=== PATIENT | female | born 1980 | race Caucasian/White ===

== ENCOUNTER 2019-04-24 14:42 | Outpatient (CLI) | payer BC, SELFPAY ==
--- NOTE | ~2019-04-24 | MR_ITS ---
EXAMINATION: MR elbow LT wo con DATE: 04/24/2019 16:22 INDICATION: Left elbow pain. TECHNIQUE: Magnetic resonance imaging (MRI) of the left elbow was performed without intravenous contr ast. Sequences included coronal, axial, and sagittal PD-weighted FS FSE and coronal, axial, and sagit juan c PD-weighted FSE. COMPARISON: Left elbow radiographs 02/23/2019 FINDINGS: Osseous/other: Bone alignment is normal. No fracture. Bone marrow signal intensity is normal. There is full-thicknes s cartilage loss of the olecranon and posterior humerus at the ulnohumeral joint. There is a skin mar ker posterior to olecranon. Tendons: Brachialis tendon and biceps tendon are normal. There is mild tendinopathy of common flexor tendon. T here is moderate tendinopathy of common extensor tendon. No tear. Ligaments: Radial collateral ligament, lateral ulnar collateral ligament, and ulnar collateral ligament are norm al. Cubital tunnel: Ulnar nerve is normal. Fluid: There is no elbow joint effusion. There is subcutaneous edema overlying the olecranon. IMPRESSION: 1. Severe chondrosis of ulnohumeral joint. 2. Mild tendinopathy of common flexor tendon. Moderate tendinopathy of common extensor tendon. Reviewed, dictated and finalized at location A. ARCHITECT IMPRESSION: 1. Severe chondrosis of ulnohumeral joint. 2. Mild tendinopathy of common flexor tendon. Moderate tendinopathy of common e xtensor tendon.
--- NOTE | ~2019-04-24 | XR_ITS ---
XR knee RT 3V 04/24/2019 15:10 Indication: Right knee pain Procedure: 3 views right knee Comparison: No prior studies for comparison. Findings: Normal anatomic alignment. No significant joint space narrowing. No fracture or traumatic m alalignment. No significant joint effusion. Impression: 1: No significant bone or joint abnormality. Reviewed, dictated and finalized at location B. ON PROGRAMMER Impression: 1: No significant bone or joint abnormality.
== END 2019-04-24 14:43 | disposition home or self-care (01) ==
PROVIDERS: PCP Internal Medicine; Visit Provider Nurse Practitioner
DX: M25.522 Pain in left elbow (principal); M25.561 Pain in right knee; M94.222 Chondromalacia, left elbow; M67.822 Other specified disorders of synovium, left elbow
CPT/HCPCS: 73221; 73562

== ENCOUNTER 2019-08-02 06:40 | Outpatient (CLI) | payer BC, SELFPAY ==
--- NOTE | ~2019-08-02 | MR_ITS ---
EXAMINATION: MR knee RT wo con DATE: 08/02/2019 07:35 INDICATION: Right knee pain. TECHNIQUE: Magnetic resonance imaging (MRI) of the right knee was performed without intravenous contr ast. Sequences included coronal PD-weighted FSE, coronal PD-weighted FS FSE, sagittal T2-weighted FS E, sagittal PD-weighted FS FSE and axial PD weighted fat saturated FSE. COMPARISON: Right knee radiographs dated 04/24/2019 FINDINGS: Medial compartment: Mild medial extrusion of the body of the medial meniscus with full-thickness radial tear near the pos terior root. Increased intrasubstance signal in the body and posterior horn of the medial meniscus wh ich does not contact the articular surface consistent with mucoid degeneration. There is extensive p artial thickness chondral fissuring from the anterior to posterior weightbearing medial femoral condy le with no degenerative subchondral changes. Lateral compartment: Lateral meniscus is normal. Mild partial thickness cartilage loss with smooth chondral surface along the lateral aspect of the posterior weightbearing lateral femoral condyle. Patellofemoral compartment: Partial-thickness chondral ulceration without degenerative subchondral changes along the patellar api saba ridge. Chondral swelling with increased signal but without definitive fissuring at the lateral pa tellar facet. Partial-thickness cartilage loss with generalized smooth appearing chondral surface lena ng portions of the medial trochlea. Ligaments and tendons: Anterior and posterior cruciate ligaments are normal. The medial collateral ligament and fibular brent ateral ligament complex are normal. The extensor mechanism is normal. The visualized medial and later al hamstring tendons as well as the iliotibial band are normal. Fluid: Very small knee joint effusion collecting predominantly in the medial gutter of the suprapatellar edy ch. Multiloculated ganglion cysts cephalad to the posterior aspect of the lateral femoral condyle, at the posterior margin of the posterior cruciate ligament and along the anterior margin of the medial tibial plateau. No loose osteochondral bodies identified. Osseous/other: There is red marrow reexpansion in the metaphyseal regions of the distal femur and proximal tibia. No fracture or pathologic marrow replacing process. IMPRESSION: 1. Full-thickness radial tear near the posterior root of the medial meniscus. 2. Mild tricompartmental osteoarthritis with regions of moderate grade chondromalacia in all 3 compar tments. Reviewed, dictated and finalized at location A. IMPRESSION: 1. Full-thickness radial tear near the posterior root of the medial meniscus. 2. Mild tricompartmental osteoarthritis with regions of moderate grade chondrom alacia in all 3 compartments.
== END 2019-08-02 06:41 | disposition home or self-care (01) ==
PROVIDERS: PCP Internal Medicine; Visit Provider Nurse Practitioner
DX: M25.569 Pain in unspecified knee (principal); S83.241A Other tear of medial meniscus, current injury, right knee, initial encounter; M17.11 Unilateral primary osteoarthritis, right knee; M94.261 Chondromalacia, right knee
CPT/HCPCS: 73721

== ENCOUNTER 2019-10-30 19:40 | Emergency (ER) | payer BC, SELFPAY ==
--- NOTE | ~2019-10-30 | XR_ITS ---
XR knee LT 3V DATE: 10/30/2019 21:02 INDICATION: Twisted knee. [place] a pop. History of ACL surgery. TECHNIQUE: 3 views including crosstable lateral COMPARISON: None FINDINGS: Fixation devices are noted in the distal femur and proximal tibia for history of prior ante rior cruciate ligament repair. There is small suprapatellar knee joint effusion. There is mild periarticular spurring of the patella. There is mild periarticular spurring at the late ral compartment, mild loss of height of medial compartment joint space. No fracture or dislocation, periosteal reaction or bone destruction. No radiopaque intra-articular lo ose body or chondrocalcinosis. IMPRESSION: Status post anterior cruciate ligament repair Small joint effusion; no evidence of fracture Tricompartment osteoarthritis Reviewed, dictated and finalized at location A.
[2019-10-30 19:48] VITALS: BP 143/87; PULSE 89; RESP 18; TEMP 36.7; O2SAT 98
--- NOTE | 2019-10-30 19:53 | ED.LOWEXIN ---
HPI - Extremity Injury (Lower) General Chief Complaint: Extremity Injury, Lower Stated Complaint: Injured left knee Time Seen by Provider: 10/30/19 19:43 Source: patient and family Mode of arrival: ambulatory Limitations: no limitations History of Present Illness HPI Narrative: 39 years old white female, morbidly obese came to the emergency room with twisting and pain behind left knee prior to arrival to the emergency room. Patient denies. History of left knee surgery years ago. Related Data Home Medications Medication Instructions Recorded Confirmed ibuprofen 200 mg capsule 200 mg PO Q6H PRN 02/23/19 08/04/19 acetaminophen PO 05/23/19 08/04/19 acetaminophen 650 mg 650 mg PO Q12H 08/29/19 tablet,extended release Allergies Allergy/AdvReac Type Severity Reaction Status Date / Time No Known Allergies Allergy Verified 10/30/19 20:21 Review of Systems Review of Systems: Narrative: CONSTITUTIONAL: Denies fever, chills, or sweats. EYES: Denies visual changes, redness, or discharge. ENT: Denies rhinorrhea, congestion, sore throat, or otalgia. CARDIOVASCULAR: Denies chest pain, palpitations, or edema. RESPIRATORY: Denies cough or dyspnea. GASTROINTESTINAL: Denies abdominal pain, nausea, vomiting, or diarrhea. GENITOURINARY: Denies dysuria or hematuria. SKIN: Denies rash or itching. MUSCULOSKELETAL: Denies back pain, joint pain, or myalgia. NEUROLOGIC: Denies headache, numbness, or weakness. PSYCHIATRIC: Denies anxiety or depression. [facility] Past Medical History Medical History Arthritis Arthritis of elbow, degenerative Arthritis of knee, right Asthma Chondromalacia of right patellofemoral joint Medial epicondyle apophysitis of left elbow due to overuse Medial meniscus tear Obesity Pancreatitis, acute Surgical History Surgical History H/O dilation and curettage 2009 S/P ACL surgery Left 1997 Family History Family History Father Hypertension CAD (coronary artery disease) Type 2 diabetes mellitus Mother Coronary artery stenosis Renal stones Sibling Hypertension Other Arthritis Diabetes mellitus Heart disease Malignant neoplasm Social History Social History Smoking status: Former smoker Tobacco type: cigarettes Smoking end date: 02/23/16 Alcohol intake: current Gender identity (if verbalized by the patient): Female Exam Narrative: Exam Narrative: General appearance: Well-developed, well-nourished Skin: Normal color Head: Normocephalic, nontraumatic Eyes: Clear conjunctiva ENT: Oropharynx normal, ears normal, nose normal Neck: Supple, nontender Chest and respiratory: Airway patent, no respiratory distress, no accessory muscle use Heart: Regular rate/rhythm Abdomen: Soft, nontender, no organomegaly, quiet bowel sounds Vascular: Normal peripheral pulses, normal capillary refill. Musculoskeletal: Left knee showed no deformity, no swelling, diffuse tenderness anterior lateral, slight limited range of motion Neurologic: Alert and oriented ?3, PHOTOGRAPH FINISHER is normal as tested, no gross motor deficit Course Course Emergency Course: Stable Vital Signs Vital signs: Vital Signs Temperature 36.7 C 10/30/19 19:48 Pulse Rate 89 10/30/19 19:48 Respiratory Rate 18 10/30/19 19:48 Blood Pressure 143/87 H 10/30/19 19:48 Pulse Oximetry 98 10/30/19 19:48 Temperature 36.7 C 10/30/19 19:48 Pulse Rate 89 10/30/19 19:48 Respiratory Rate 18 10/30/19 19:48 Blood Pressure 143/87 H
[2019-10-30] MEDS: IBUPROFEN 600 MG TABLET PO (19:59)
[2019-10-30 21:53] VITALS: PULSE 79; RESP 18; O2SAT 99
== END 2019-10-30 21:54 | disposition home or self-care (01) ==
PROVIDERS: Emergency Provider Emergency Medicine; PCP Internal Medicine
DX: S83.92XA Sprain of unspecified site of left knee, initial encounter (principal); M19.90 Unspecified osteoarthritis, unspecified site; J45.909 Unspecified asthma, uncomplicated; Z87.891 Personal history of nicotine dependence; E66.01 Morbid (severe) obesity due to excess calories; X58.XXXA Exposure to other specified factors, initial encounter
CPT/HCPCS: 73562; 99283; A9270

== ENCOUNTER 2019-11-08 17:23 | Outpatient (CLI) | payer BC, SELFPAY ==
--- NOTE | ~2019-11-08 | MR_ITS ---
EXAMINATION: MR knee LT wo con DATE: 11/08/2019 18:30 INDICATION: Left knee pain. TECHNIQUE: Magnetic resonance imaging (MRI) of the left knee was performed without intravenous contra st. Sequences included axial PD-weighted FS FSE, coronal PD-weighted FSE and PD-weighted FS FSE, sagi ttal PD-weighted FSE, and sagittal T2-weighted FS FSE. COMPARISON: Left knee radiographs 10/30/2019 FINDINGS: Medial compartment: There is a radial tear of posterior root of medial meniscus. There is shallow partial-thickness carti james loss of tibial condyle and femoral condyle. Marginal osteophytes are noted. Lateral compartment: There is a vertical tear of posterior horn of lateral meniscus. There is shallow partial-thickness ca rtilage loss of tibial condyle, worst at the posterior articular surface. There is cartilage surface irregularity of femoral condyle. Marginal osteophytes are noted. Patellofemoral compartment: There is deep partial thickness cartilage loss of patellar medial facet, median ridge, and medial asp ect of lateral facet. There is cartilage surface irregularity of trochlea. Marginal osteophytes are n oted. Ligaments and tendons: There are changes of anterior cruciate ligament reconstruction, which is intact. Posterior cruciate l igament demonstrates increased signal and non-smooth margins, consistent with sprain. Medial collater al ligament is intact. There are changes of prior sprain of fibular collateral ligament characterized by thickening and increased signal intensity proximally. There is mild patellar tendinopathy. Fluid: There is a small knee joint effusion. There is trace fluid in a Freeman's cyst. There are partial tears of the origins of medial and lateral heads of gastrocnemius with associated ganglion cysts. IMPRESSION: 1. Moderate chondrosis of patellofemoral compartment and mild chondrosis of medial and lateral compar tments. 2. Intact anterior cruciate ligament reconstruction. 3. Tears of medial and lateral menisci. 4. Posterior cruciate ligament sprain. 5. Small knee joint effusion. Reviewed, dictated and finalized at location A. IMPRESSION: 1. Moderate chondrosis of patellofemoral compartment and mild chondrosis of med ial and lateral compartments. 2. Intact anterior cruciate ligament reconstruction. 3. Tears of medial and lateral menisci. 4. Posterior cruciate ligament sprain. 5. Small knee joint effusion.
== END 2019-11-08 17:24 | disposition home or self-care (01) ==
PROVIDERS: PCP Internal Medicine; Visit Provider Nurse Practitioner
DX: M25.462 Effusion, left knee (principal); S83.242A Other tear of medial meniscus, current injury, left knee, initial encounter; S83.282A Other tear of lateral meniscus, current injury, left knee, initial encounter; X58.XXXA Exposure to other specified factors, initial encounter; S83.522A Sprain of posterior cruciate ligament of left knee, initial encounter
CPT/HCPCS: 73721

== ENCOUNTER 2020-01-29 02:01 | Outpatient (CLI) | payer BC, SELFPAY ==
[2020-01-29 18:53] LABS: SARS-CoV-2 RNA PCR Negative
== END 2020-01-29 02:02 | disposition home or self-care (01) ==
LOC: ANHCOVIDDT 02:01
PROVIDERS: PCP Internal Medicine; Visit Provider Orthopaedic Surgery
DX: Z01.812 Encounter for preprocedural laboratory examination (principal); Z20.828 Contact with and (suspected) exposure to other viral communicable diseases
CPT/HCPCS: 87635; C9803; U0003

== ENCOUNTER 2020-02-01 01:03 | Day surgery (SDC) | payer BC, SELFPAY ==
[2020-01-26 16:21] VITALS: BMI 43.2
--- NOTE | 2020-02-01 06:46 | WPDHPUPDATE1 ---
History and Physical Update Update Date/Time: 02/01/20 06:46 History and Physical has been reviewed, including an updated exam of the patient. There are NO changes in the patient's condition. Covid test negative. Risks, benefits, and alternatives have been discussed and questions answered. Patient agrees to proceed with procedure.
--- NOTE | 2020-02-01 08:13 | WPDANESEPP ---
Anes - Eval Pre Procedure Procedure: Operation Date: 02/01/20 10:30 Proposed Procedures p Left Knee Arthroscopy, Debride Meniscus, Synovectomy, Chondroplasty, Proceed As Indicated - Dakota Elliott MD Date/Time: 02/01/20 08:13 Pre Op Diagnosis: Left Knee Pain, Left meniscus tear, Chondromalacia Patient Data Age: 39 Gender: F Height: 1.65 m Weight: 117.98 kg Allergies Allergy/AdvReac Type Severity Reaction Status Date / Time No Known Allergies Allergy Verified 01/26/20 15:30 Home Medications Medication Instructions Recorded Confirmed Type acetaminophen 650 mg 650 mg PO Q12H 08/29/19 01/26/20 History tablet,extended release tramadol 50 mg PO Q4H PRN #20 tablet 10/30/19 01/26/20 Rx celecoxib 200 mg capsule 200 mg PO DAILY #30 cap 11/29/19 01/26/20 Rx Patient hx anesthesia problems: none Family hx anesthesia problems: none PMFSH Past Medical History Medical History Acute medial meniscus tear of left knee Arthritis Arthritis of elbow, degenerative Arthritis of knee, right Asthma Chondromalacia of right patellofemoral joint Chondromalacia patellae, left knee Lateral meniscus tear, current Medial epicondyle apophysitis of left elbow due to overuse Medial meniscus tear Obesity Obesity Pancreatitis, acute Surgical History Surgical History H/O dilation and curettage 2009 H/O reconstruction of anterior cruciate ligament tear S/P ACL surgery Left 1997 Family History Family History Father Hypertension CAD (coronary artery disease) Type 2 diabetes mellitus Mother Coronary artery stenosis Renal stones Sibling Hypertension Other Arthritis Diabetes mellitus Heart disease Malignant neoplasm Social History Social History Smoking packs per day: 0.5 Smoking cigarettes per day: 10.0 Years smoked: 15 Smoking pack-years: 7.50 Smoking status: Former smoker Tobacco type: cigarettes Smoking end date: 02/22/15 Alcohol intake: current Living arrangements: with family Gender identity (if verbalized by the patient): Female Spiritual care concerns: No Exam Day of Procedure 02/01/20 08:13
[2020-02-01 08:30] VITALS: BP 145/94; PULSE 87; RESP 20; TEMP 36.8; O2SAT 99
[2020-02-01] MEDS: ACETAMINOPHEN 500 MG TABLET 1000 MG PO (09:02)
[2020-02-01] MEDS: KETOROLAC 15 MG/ML VIAL (*BKC) IV PUSH (09:03)
[2020-02-01] MEDS: LACTATED RINGERS 1,000 ML 30 ML IV CONT (09:03)
--- NOTE | 2020-02-01 11:04 | WPDANESEPPF ---
Anes - Initial Pre Proc Eval Procedure: Operation Date: 02/01/20 10:30 Proposed Procedures p Left Knee Arthroscopy, Debride Meniscus, Synovectomy, Chondroplasty, Proceed As Indicated - Dakota Elliott MD Date/Time: 02/01/20 11:04 Surgeon: Dakota Elliott MD Pre Op Diagnosis: Left Knee Pain, Left meniscus tear, Chondromalacia Patient Data Age: 39 Gender: F Height: 5 ft 5 in Weight: 118.6 kg Last Vital Signs Temp 98.3 F 02/01/20 08:30 Pulse 87 02/01/20 08:30 Resp 20 02/01/20 08:30 BP 145/94 H 02/01/20 08:30 Pulse Ox 99 02/01/20 08:30 Allergies Allergy/AdvReac Type Severity Reaction Status Date / Time No Known Allergies Allergy Verified 02/01/20 09:53 Home Medications Medication Instructions Recorded Confirmed Type acetaminophen 650 mg 650 mg PO Q12H 08/29/19 02/01/20 History tablet,extended release tramadol 50 mg PO Q4H PRN #20 tablet 10/30/19 02/01/20 Rx celecoxib 200 mg capsule 200 mg PO DAILY #30 cap 11/29/19 02/01/20 Rx Patient hx anesthesia problems: none Family hx anesthesia problems: none PMFSH Past Medical History Medical History Acute medial meniscus tear of left knee Arthritis Arthritis of elbow, degenerative Arthritis of knee, right Asthma Chondromalacia of right patellofemoral joint Chondromalacia patellae, left knee Lateral meniscus tear, current Medial epicondyle apophysitis of left elbow due to overuse Medial meniscus tear Obesity Obesity Pancreatitis, acute Surgical History Surgical History H/O dilation and curettage 2009 H/O reconstruction of anterior cruciate ligament tear S/P ACL surgery Left 1997 Family History Family History Father Hypertension CAD (coronary artery disease) Type 2 diabetes mellitus Mother Coronary artery stenosis Renal stones Sibling Hypertension Other Arthritis Diabetes mellitus Heart disease Malignant neoplasm Social History Social History Smoking packs per day: 0.5 Smoking cigarettes per day: 10.0 Years smoked: 15 Smoking pack-years: 7.50 Smoking status: Former smoker Tobacco type: cigarettes Smoking end date: 02/22/15 Alcohol intake: current Living arrangements: with family Gender identity (if verbalized by the patient): Female Spiritual care concerns: No Anes - Eval Final PreProcedure Day of Procedure 02/01/20 11:04 Patient weight: morbidly obese Heart: regular rate and rhythm Lungs: clear to auscultation Airway: Mallampati scale class III Neurological: alert and oriented Last oral intake: >/= 8 hours ASA classification: III Emergent: no Anesthetic plan: proceed Anesthesia type and monitoring: general LMA and standard monitoring Informed Consent: The patient's anesthetic plan and its attendant risks and benefits were discussed with the patient/family/POA. Questions were solicited and answers provided to the satisfaction of the patient/family/POA.
[2020-02-01] MEDS: ceFAZolin 2 GM/D5W 50 ML 2 GM/50 ML BAG IVPB (11:36)
[2020-02-01 12:49] VITALS: BP 136/89; PULSE 85; RESP 8; TEMP 36.8; O2SAT 95
--- NOTE | 2020-02-01 12:58 | P.OP_ITS ---
Procedure Note - Detailed Date of procedure: 02/01/20 Pre-op diagnosis: Left Knee Pain, Left meniscus tear, Chondromalacia Medial and lateral meniscus tear, moderate to severe synovitis anterior medial and lateral compartments with medial and lateral plica, chondromalacia patellofemoral, lateral and medial femoral condyle Post-op diagnosis: same Procedure performed: Left knee arthroscopy with partial medial and lateral meniscectomy, synovectomy, chondroplasty Description of procedure: Indications: 39-year-old woman with left knee pain. Patient failed non operative treatment with therapy, home exercises, activity modifications and anti-inflammatories. Pain on a daily basis with weight- bearing activity. Presents now for operative treatment. Informed consent given by patient. Operative extremity marked in preoperative holding area. Patient received intravenous antibiotics. Patient brought to operating room and underwent general anesthetic by anesthesia team. Positioned supine on operating room table. Left leg placed into a posterior thigh leg moore. Foot of the table dropped to 90? and right leg padded out of the field. Time-out performed confirming patient, site of surgery and plan. Left knee prepped and draped in usual sterile surgical fashion using ChloraPrep skin solution. Standard arthroscopic portals made by using a 11 blade knife for the anterior lateral portal 1st. Capsule penetrated bluntly. Camera and inflow started. The below operative findings noted. Intra-articular visualization used to position the anterior medial portal using 22 gauge spinal needle. A 11 blade knife used for the skin and blunt penetration of the capsule. 4.7 millimeter arthroscopic shaver introduced and partial medial meniscectomy of the loose and torn portion performed. Shaver then positioned in the lateral compartment and partial lateral meniscectomy performed. Edge of meniscus completed with arthroscopic Wand. Arthroscopic Wand used to perform chondroplasty of the patellofemoral articul ation and the medial and lateral femoral condyle. Shaver reintroduced and a synovectomy performed of the anterior fat pad and extensive synovium as well as medial and lateral plica. Bleeding points c oagulated with Wand. Knee inspected, no loose pieces noted. 1 liter of irrigant infused and suction out. Arthroscopic cannulas removed. Skin closed with 4 nylon interrupted suture. Local anesthetic with 0.25% Marcaine. Sterile dressing applied. Patient awoken from anesthesia, extubated and taken to recovery room in stable condition. All sponge needle and instrument counts correct at the end of the case. Anesthesia: GLMA Surgeon: Dakota Elliott MD Estimated blood loss (mL): 5 Tourniquet time (min): 0 Drains: No Packing: No Pathology: none sent Complications: None Condition: stable Disposition: PACU Findings: Left knee previous anterior cruciate ligament reconstruction intact, PCL intact. Complex degenerative tear posterior horn lateral meniscus with surrounding synovitis, complex degenerative tear posterior horn medial meniscus, extensive synovitis anterior compartment anterior fat pad medial and lateral compartments peripatellar with thickened synovium and plica medial and lateral. Grade 4 chondromalacia medial femoral condyle, grade 2 chondromalacia lateral femoral condyle, a grade 3 patella with grade 3 femoral trochlea changes
[2020-02-01 13:00] VITALS: BP 136/89; PULSE 85; RESP 20; TEMP 36.8; O2SAT 95
[2020-02-01 13:15] VITALS: BP 145/81; PULSE 97; RESP 20; O2SAT 99
[2020-02-01 13:35] VITALS: BP 128/93; PULSE 78; RESP 16
[2020-02-01 14:01] VITALS: BP 138/93; PULSE 73; RESP 16
[2020-02-01] MEDS: ONDANSETRON INJ 4 MG/2 ML VIAL IV PUSH (14:01)
== END 2020-02-01 14:45 | disposition home or self-care (01) ==
PROVIDERS: PCP Internal Medicine; Visit Provider Orthopaedic Surgery
PROC: (CPT 29870; principal; 2020-02-01 10:30)
DX: S83.242A Other tear of medial meniscus, current injury, left knee, initial encounter (principal); S83.282A Other tear of lateral meniscus, current injury, left knee, initial encounter; X50.0XXA Overexertion from strenuous movement or load, initial encounter; M65.862 Other synovitis and tenosynovitis, left lower leg; M94.262 Chondromalacia, left knee; M67.52 Plica syndrome, left knee; E66.01 Morbid (severe) obesity due to excess calories; Z68.41 Body mass index [BMI] 40.0-44.9, adult; Z87.891 Personal history of nicotine dependence
CPT/HCPCS: 29880; A9270; J0690; J1100; J1885; J2405; J2704; J3010; J7120

== ENCOUNTER 2020-03-25 00:34 | Outpatient (CLI) | payer BC, SELFPAY ==
[2020-03-25 17:34] LABS: SARS-CoV-2 RNA PCR Negative
== END 2020-03-25 00:35 | disposition home or self-care (01) ==
LOC: ANHCOVIDDT 00:34
PROVIDERS: PCP Internal Medicine; Visit Provider Orthopaedic Surgery
DX: Z01.812 Encounter for preprocedural laboratory examination (principal); Z20.822 Contact with and (suspected) exposure to COVID-19
CPT/HCPCS: C9803; U0003; U0005

== ENCOUNTER 2020-03-28 01:26 | Day surgery (SDC) | payer BC, SELFPAY ==
[2020-03-22 15:04] VITALS: BMI 43.2
[2020-03-28] VITALS (9 sets, daily range): BP systolic 109–140; BP diastolic 60–100; PULSE 71–98; RESP 11–20; TEMP 36.2–36.5; O2SAT 95–100
--- NOTE | 2020-03-28 07:22 | WPDHPUPDATE1 ---
History and Physical Update Update Date/Time: 03/28/20 07:22 History and Physical has been reviewed, including an updated exam of the patient. There are NO changes in the patient's condition. Covid test negative. Risks, benefits, and alternatives have been discussed and questions answered. Patient agrees to proceed with procedure.
--- NOTE | 2020-03-28 08:02 | WPDANESEPPF ---
Anes - Initial Pre Proc Eval Procedure: Operation Date: 03/28/20 10:30 Proposed Procedures p Right Knee Arthroscopy Debride Meniscus, Synovectomy, Chondroplasty, Proceed As Indicated - Dakota Elliott MD Date/Time: 03/28/20 08:02 Surgeon: Dakota Elliott MD Pre Op Diagnosis: Right knee Pain, Right Chondromalacia Patient Data Age: 39 Gender: F Height: 1.65 m Weight: 118 kg Allergies Allergy/AdvReac Type Severity Reaction Status Date / Time No Known Allergies Allergy Verified 03/28/20 09:06 Home Medications Medication Instructions Recorded Confirmed Type acetaminophen 650 mg 650 mg PO Q12H PRN 08/29/19 03/28/20 History tablet,extended release hydrocodone-acetaminophen [[place]] 1 tablet PO Q6H PRN #30 tablet 02/01/20 03/22/20 Rx ondansetron HCl [Zofran] 4 mg PO Q8H PRN #10 tablet 02/01/20 03/22/20 Rx celecoxib 200 mg capsule 200 mg PO DAILY #30 cap 03/19/20 03/28/20 Rx Patient hx anesthesia problems: none Family hx anesthesia problems: none PMFSH Past Medical History Medical History (Updated 03/28/20 @ 08:02 by Parker Sims MD) Acute medial meniscus tear of left knee Arthritis Arthritis of elbow, degenerative Arthritis of knee, right Asthma Chondromalacia of right patellofemoral joint Chondromalacia patellae, left knee Lateral meniscus tear, current Medial epicondyle apophysitis of left elbow due to overuse Medial meniscus tear Morbid obesity with BMI of 40.0-44.9, adult Obesity Obesity Pancreatitis, acute Surgical History Surgical History H/O dilation and curettage 2009 H/O reconstruction of anterior cruciate ligament tear S/P ACL surgery Left 1997 Family History Family History Father Hypertension CAD (coronary artery disease) Type 2 diabetes mellitus Mother Coronary artery stenosis Renal stones Sibling Hypertension Other Arthritis Diabetes mellitus Heart disease Malignant neoplasm Social History Social History Smoking packs per day: 0.5 Smoking cigarettes per day: 10.0 Years smoked: 15 Smoking pack-years: 7.50 Tobacco type: cigarettes Second hand tobacco smoke exposure: No Smoking end date: 02/22/15 Additional smoking assessment comments: QUIT 2016 Alcohol intake: current Substance use: never Substance use type: does not use Living arrangements: with family Gender identity (if verbalized by the patient): Female Spiritual care concerns: No Anes - Eval Final PreProcedure Day of Procedure 03/28/20 08:02 Patient weight: obese Heart: regular rate and rhythm Lungs: clear to auscultation and normal air movement Airway: Mallampati scale class II Neurological: alert and oriented Last oral intake: >/= 8 hours ASA classification: III Emergent: no Anesthetic plan: proceed Anesthesia type and monitoring: general LMA Informed Consent: The patient's anesthetic plan and its attendant risks and benefits were discussed with the patient/family/POA. Questions were solicited and answers provided to the satisfaction of the patient/family/POA.
[2020-03-28] MEDS: LACTATED RINGERS 1,000 ML 30 ML IV CONT ×2 (09:17→11:58)
[2020-03-28] MEDS: KETOROLAC 15 MG/ML VIAL (*BKC) IV PUSH (09:20)
[2020-03-28] MEDS: ACETAMINOPHEN 500 MG TABLET 1000 MG PO (09:20)
--- NOTE | 2020-03-28 09:30 | SUR.PREOP ---
patient states she has received crutch training and incentive spirometer teaching with last knee operation. Reiterated teaching, patient confirms understanding.
[2020-03-28] MEDS: ceFAZolin 2 GM/D5W 50 ML 2 GM/50 ML BAG IVPB (10:48)
[2020-03-28] MEDS: BUPIVACAINE/EPINEPHRINE 0.25% 50 ML VIAL INFILTRATE (11:23)
--- NOTE | 2020-03-28 12:11 | P.OP_ITS ---
Procedure Note - Detailed Date of procedure: 03/28/20 Pre-op diagnosis: Right knee Pain, Right Chondromalacia Post-op diagnosis: same Procedure performed: Right knee arthroscopy, partial medial meniscectomy, synovectomy, chondroplasty Description of procedure: Patient is a 39-year-old woman with right knee pain. MRI demonstrates medial meniscus tear, chondromalacia and synovitis with effusion. Patient has failed conservative treatment with cortisone injection, physical therapy, home exercises and activity modification. She presents for operative treatment. What was done: Informed consent given by patient. Operative extremity marked in preoperative holding area. Patient received intravenous antibiotics. Patient brought to operating room and underwent general anesthetic by anesthesia team. Positioned supine on operating room table. Right leg placed into a posterior thigh leg moore. Foot of the table dropped to 90? and left leg padded out of the field. Time-out performed confirming patient, site of surgery and plan. Rig ht knee prepped and draped in usual sterile surgical fashion using ChloraPrep skin solution. Standard arthroscopic portals made by using a 11 blade knife for the anterior lateral portal 1st. Capsule penetrated bluntly. Camera and inflow started. The below operative findings noted. Intra-articular visualization used to position the anterior medial portal using 22 gauge spinal needle. A 11 blade knife used for the skin and blunt penetration of the capsule. 4.7 millimeter arthroscopic shaver introduced and partial medial meniscectomy of the loose and torn portion performed. Edge of meniscus completed with arthroscopic Wand. Arthroscopic Wand used to perform chondroplasty of the patellofemoral articulation and the medial femoral condyle. Shaver reintroduced and a synovectomy performed of the anterior fat pad and extensive synovium as well as medial and lateral plica, medial and lateral joint and gutters. Bleeding points coagulated with Wand. Knee inspected, no loose pieces noted. 1 liter of irrigant infused and suction out. Arthroscopic cannulas removed. Skin closed with 4 nylon interrupted suture. Local anesthetic with 0.25% Marcaine. Sterile dressing applied. Patient awoken from anesthesia, extubated and taken to recovery room in stable condition. All sponge needle and instrument counts correct at the end of the case. Implants: None Anesthesia: GLMA Surgeon: Dakota Elliott MD Estimated blood loss (mL): 5 Tourniquet time (min): 0 Drains: No Packing: No Pathology: none sent Complications: None Condition: stable Disposition: PACU Findings: Right knee with grade 4 chondromalacia of the medial femoral condyle grade 3 tibial plateau. Complex degenerative type tear of the body and posterior horn medial meniscus with displacement into the joint. ACL and PCL intact. Lateral compartment intact. Grade 3 chondromalacia patella articular surface. Extensive synovitis anterior with large medial plica and extensive synovitis medial and lateral joint capsule.
[2020-03-28] MEDS: ONDANSETRON INJ 4 MG/2 ML VIAL IV PUSH (12:29)
[2020-03-28] MEDS: SCOPOLAMINE 1.5 MG PATCH TRANSDERM (12:38)
[2020-03-28] MEDS: HALOPERIDOL LACTATE 5 MG/ML VIAL 1 MG IV PUSH (12:40)
== END 2020-03-28 13:40 | disposition home or self-care (01) ==
PROVIDERS: PCP Internal Medicine; Visit Provider Orthopaedic Surgery
PROC: (CPT 29870; principal; 2020-03-28 10:30)
DX: S83.241A Other tear of medial meniscus, current injury, right knee, initial encounter (principal); M94.261 Chondromalacia, right knee; M65.861 Other synovitis and tenosynovitis, right lower leg; X58.XXXA Exposure to other specified factors, initial encounter; E66.01 Morbid (severe) obesity due to excess calories; Z68.41 Body mass index [BMI] 40.0-44.9, adult; Z87.891 Personal history of nicotine dependence
CPT/HCPCS: 29881; 29876; A9270; J0690; J1100; J1630; J1885; J2250; J2405; J2704; J3010; J7120

== ENCOUNTER 2020-07-11 08:12 | Emergency (ER) | payer BC, SELFPAY ==
[2020-07-11 08:23] VITALS: BP 137/97; PULSE 80; RESP 18; TEMP 36.6; O2SAT 98
--- NOTE | 2020-07-11 08:24 | ED.EAR ---
HPI - Ear Problem General Chief complaint: Ear Stated complaint: Sore Throat,Ear Pain Time Seen by Provider: 07/11/20 08:24 Source: patient Mode of arrival: ambulatory Limitations: no limitations History of Present Illness HPI Narrative: Mary Kate Arellano is a 40 yo female with a PMH of pancreatitis, arthritis, recurrent knee issues, [facility] complaints of ear pain today. Started with a sore throat yesterday then woke up this morning with ear pain. Has taken Tylenol. Related Data Allergies Allergy/AdvReac Type Severity Reaction Status Date / Time No Known Allergies Allergy Verified 07/11/20 08:19 Review of Systems Review of Systems: Narrative: CONSTITUTIONAL: Denies fever, chills, sweats. EYES: Denies visual changes, redness, discharge. ENT: Denies rhinorrhea, congestion, has sore throat, R otalgia. CARDIOVASCULAR: Denies chest pain, palpitations, edema. RESPIRATORY: Denies dyspnea, wheezing, cough GASTROINTESTINAL: Denies abdominal pain, nausea, vomiting, diarrhea. GENITOURINARY: Denies dysuria, hematuria, abnormal discharge SKIN: Denies rash or itching. NEUROLOGIC: Denies numbness, or focal weakness. PSYCHIATRIC: Denies anxiety or depression. ON LICENSE OF [facility] Past Medical History Medical History Acute medial meniscus tear of left knee Arthritis Arthritis of elbow, degenerative Arthritis of knee, right Asthma Chondromalacia of right patellofemoral joint Chondromalacia patellae, left knee Lateral meniscus tear, current Medial epicondyle apophysitis of left elbow due to overuse Medial meniscus tear Morbid obesity with BMI of 40.0-44.9, adult Obesity Obesity Pancreatitis, acute Surgical History Surgical History H/O dilation and curettage 2009 H/O reconstruction of anterior cruciate ligament tear S/P ACL surgery Left 1997 Family History Family History Father Hypertension CAD (coronary artery disease) Type 2 diabetes mellitus Mother Coronary artery stenosis Renal stones Sibling Hypertension Other Arthritis Diabetes mellitus Heart disease Malignant neoplasm Social History Social History Smoking packs per day: 0.5 Smoking cigarettes per day: 10.0 Years smoked: 15 Smoking pack-years: 7.50 Tobacco type: cigarettes Second hand tobacco smoke exposure: No Smoking end date: 02/22/15 Additional smoking assessment comments: QUIT 2016 Alcohol intake: current Substance use: never Substance use type: does not use Gender identity (if verbalized by the patient): Female Spiritual care concerns: No Comments At time of signature, I agree with nursing past medical, surgical, social and family history. There is no relevant family history pertinent to the presenting complaint. Blood pressure elevated at today's visit may be due to pain but will follow up with primary care physician Exam Narrative: Exam Narrative: GENERAL: This is a well-nourished, well-developed patient, in mild distress. HEAD: normocephalic, atraumatic. EYES: PERRL. Sclera clear/white. Vision is grossly intact. EARS: External ears normal, auditory canal clear on L erythema of right canal and without drainage, bulging right TM. Hearing grossly intact. Swollen red R lobe from small pimple NOSE: External nose normal without nasal discharge, nares without redness, no rhinorrhea. THROAT: Mucous membranes moist, posterior pharynx edema and erythema NECK: Neck supple, tender on right CARDIOVASCULAR: Regular rate and rhythm without murmurs, gallops, or rubs. RESPIRATORY: Clear to auscultation. Breath sounds equal bilaterally. No wheezes, rales, or rhonchi. GASTROINTESTINAL: Abdomen soft, non-tender, SKIN: warm, intact with no suspicious lesions or rash, good texture and turgor. NEURO: awake,
== END 2020-07-11 08:57 | disposition home or self-care (01) ==
PROVIDERS: Emergency Provider Nurse Practitioner; PCP Internal Medicine
DX: H66.001 Acute suppurative otitis media without spontaneous rupture of ear drum, right ear (principal); J06.9 Acute upper respiratory infection, unspecified; Z87.891 Personal history of nicotine dependence; M19.90 Unspecified osteoarthritis, unspecified site; J45.909 Unspecified asthma, uncomplicated; E66.9 Obesity, unspecified; Z68.41 Body mass index [BMI] 40.0-44.9, adult; M22.42 Chondromalacia patellae, left knee; M22.41 Chondromalacia patellae, right knee; M19.029 Primary osteoarthritis, unspecified elbow; M17.11 Unilateral primary osteoarthritis, right knee
CPT/HCPCS: 87081; 87880; 99213; G0463

== ENCOUNTER 2020-09-27 14:03 | Outpatient (CLI) | payer BC, SELFPAY ==
--- NOTE | ~2020-09-27 | MMUS_ITS ---
EXAMINATION: MM diagnostic sonido BI w sarah, US breast RT limited HISTORY: Palpable right breast lump TECHNIQUE: Additional 3-D tomosynthesis images of the breasts were performed and synthetic 2-D images were generated. CAD analysis was submitted and interpreted. High resolution Limited right breast ult rasound was performed. COMPARISON: 03/27/2016 BREAST PARENCHYMAL COMPOSITION: Breast composed of scattered areas of fibroglandular density. FINDINGS: MAMMOGRAPHIC FINDINGS: There are no suspicious masses, calcifications or architectural distortion in either breast to sugges t malignancy. ULTRASOUND: Limited right breast ultrasound: Normal heterogeneous echotexture without focal solid or cystic mass. IMPRESSION: 1. No evidence for malignancy in either breast. 2. Routine yearly screening mammogram and regular clinical breast examination are recommended. BI-RADS Category 1: Negative Reviewed, dictated and finalized at location A. IMPRESSION: 1. No evidence for malignancy in either breast. 2. Routine yearly screening mammogram and regular clinical breast examination a re recommended. BI-RADS Category 1: Negative
== END 2020-09-27 14:04 | disposition home or self-care (01) ==
PROVIDERS: PCP Internal Medicine; Visit Provider Advanced Practice Midwife
DX: N64.89 Other specified disorders of breast (principal)
CPT/HCPCS: 76642; 77062; 77066; G0279

== ENCOUNTER → 2020-10-31 08:39 | Outpatient (CLI) | payer BC, SELFPAY ==
[2020-11-01 18:57] LABS: SARS-CoV-2 RNA PCR Positive
== END ==
PROVIDERS: PCP Internal Medicine; Visit Provider Clinical Nurse Specialist
DX: U07.1 COVID-19 (principal)
CPT/HCPCS: C9803; U0003; U0005

== ENCOUNTER 2020-11-13 05:38 | Emergency (ER) | payer BC, SELFPAY ==
--- NOTE | ~2020-11-13 | CT_ITS ---
EXAMINATION: CT abdomen pelvis w con DATE: 11/13/2020 07:51 INDICATION: Left flank pain. Hematuria. TECHNIQUE: Computed tomography (CT) of the abdomen and pelvis was performed with 100 mL Omnipaque 350 intravenous contrast. Automated exposure control and iterative reconstruction technique were employe d. The dose-length product was 1454.71 mGy-cm. COMPARISON: None. FINDINGS: The visualized portions of the lung bases demonstrate mild atelectasis. No pleural effusion . The heart size is normal. No pericardial effusion. The liver, gallbladder, spleen, pancreas, adrena l glands, and kidneys are normal. There is an intrauterine device in expected position. There are no dilated loops of bowel. The appendix is not visualized. There is a 15 x 22 mm right inguinal lymph no de. There is no free intraperitoneal fluid. There is mild thoracic spondylosis. IMPRESSION: 1. Mildly enlarged right inguinal lymph node, likely reactive. Reviewed, dictated and finalized at location A.
[2020-11-13 05:43] VITALS: BP 154/101; PULSE 112; RESP 23; TEMP 36.5; O2SAT 98
[2020-11-13 06:12] LABS: Basophils Absolute Auto 0.1 K/mm3 (0.0-0.1); Basophils Percent Auto 0.9 % (0.2-1.2); Eosinophils Absolute Auto 0.3 K/mm3 (0-0.3); Eosinophils Percent Auto 2.5 % (0-4.4); Hematocrit 42.5 % (37.0-47.0); Hemoglobin 14.2 g/dL (12.0-15.0); Immature Granulocyte Absolute 0.07 K/mm3 (0.00-0.031); Immature Granulocyte Percent A 0.5 % (0-0.5); Lymphocytes Absolute Auto 1.67 K/mm3 (0.9-3.2); Lymphocytes Percent Auto 12.9 % (18.3-44.2); Mean Corpuscular HGB Conc 33.4 g/dl (32-36); Mean Corpuscular Hemoglobin 31.2 pg (26-34); Mean Corpuscular Volume 93.4 fl (80-100); Mean Platelet Volume 9.5 fl (7.4-10.4); Monocytes Absolute Auto 1.2 K/mm3 (0.1-0.6); Monocytes Percent Auto 9.3 % (2.6-8.5); Neutrophils Absolute Auto 9.6 K/mm3 (1.3-6.7); Neutrophils Percent Auto 73.9 % (45.5-73.1); Platelet Count Result 378 k/mm3 (150-375); Red Blood Count 4.55 M/mm3 (4.2-5.4); Red Cell Distribution Width 12.2 % (11.5-14.5); White Blood Count 12.9 K/mm3 (4.5-10.0)
[2020-11-13 06:21] LABS: Alanine Aminotransferase 61 U/L (4-35); Albumin Level 4.7 g/dL (3.5-5.1); Alkaline Phosphatase 77 U/L (38-126); Anion Gap 9 mmol/L (8-16); Aspartate Amino Transferase 34 U/L (14-36); Bilirubin,Total 0.4 mg/dL (0.2-1.3); Blood Urea Nitrogen 18 mg/dL (7-17); Calcium 9.6 mg/dL (8.4-10.2); Carbon Dioxide 23 mmol/L (22-30); Chloride 107 mmol/L (98-107); Estimated CRCL calculation 107 ml/min; Estimated Glomerular Filt Rate > 60; Glucose 138 mg/dL (65-110); Lipase 50 U/L (23-300); Potassium 4.1 mmol/L (3.4-5.0); Sodium 139 mmol/L (137-145)
[2020-11-13 06:24] LABS: Add Urine Microscopic? YES; Appearance Urine Clear (Clear); Bilirubin Urine Negative (Negative); Blood Urine 1+ (Negative); Color Urine Yellow (Yellow); Glucose Urine UA Negative (Negative); Ketones Urine Negative (Negative); Leukocyte Esterase Ur 1+ LEU/UL (Negative); Mucus Urine Rare /lpf; Nitrate Urine Negative (Negative); Protein Urine Negative (Negative); Specific Grav Ur 1.025 (1.001-1.035); Squamous Epithelial Cell Urine Many /hpf (Few); Urobilinogen Urine Negative mg/dL (<2.0)
[2020-11-13] MEDS: KETOROLAC 30 MG/ML VIAL (*BKC) IV PUSH (06:24)
[2020-11-13] MEDS: SODIUM CHLORIDE 0.9% IV 1,000 ML 999 ML (06:26)
--- NOTE | 2020-11-13 07:19 | ED.FEMALEGU ---
HPI - Female Genitourinary General Chief complaint: Abdominal Pain Stated complaint: LEFT flank pain Time Seen by Provider: 11/13/20 06:59 Source: patient and RN notes reviewed Mode of arrival: ambulatory Limitations: no limitations History of Present Illness HPI Narrative: This is a 40 year old female who presents for evaluation of vaginal pain. She reports she developed vaginal pain yesterday along with pain with urination and itching. She reports she started taking Cipro 2 weeks ago for a breast infection. She denies vaginal discharge, nausea, or vomiting. She also denies abdominal pain. She was evaluated at her PCP office yesterday but she denies having vaginal exam performed. She was started on Macrobid yesterday for presumed uti. Related Data Home Medications Medication Instructions Recorded Confirmed ciprofloxacin HCl 250 mg tablet 250 mg PO Q12H 11/12/20 11/12/20 Allergies Allergy/AdvReac Type Severity Reaction Status Date / Time No Known Allergies Allergy Verified 11/13/20 05:54 Review of Systems Review of Systems: All systems reviewed & are unremarkable except as noted in HPI and below PMFSH Past Medical History Medical History Acute medial meniscus tear of left knee Arthritis Arthritis of elbow, degenerative Arthritis of knee, right Asthma Chondromalacia of right patellofemoral joint Chondromalacia patellae, left knee Lateral meniscus tear, current Medial epicondyle apophysitis of left elbow due to overuse Medial meniscus tear Morbid obesity with BMI of 40.0-44.9, adult Obesity Obesity Pancreatitis, acute Surgical History Surgical History H/O dilation and curettage 2009 H/O lateral meniscus repair of left knee H/O reconstruction of anterior cruciate ligament tear S/P ACL surgery Left 1997 Family History Family History Father Hypertension CAD (coronary artery disease) Type 2 diabetes mellitus Mother Coronary artery stenosis Renal stones Sibling Hypertension Other Arthritis Diabetes mellitus Heart disease Malignant neoplasm Social History Social History Smoking packs per day: 0.5 Smoking cigarettes per day: 10.0 Years smoked: 15 Smoking pack-years: 7.50 Tobacco type: cigarettes Second hand tobacco smoke exposure: No Smoking end date: 02/22/15 Additional smoking assessment comments: QUIT 2016 Alcohol intake: current Alcohol use details: 1-2 per year Substance use: never Substance use type: does not use Gender identity (if verbalized by the patient): Female Spiritual care concerns: No Exam Const: General: no acute distress and alert Nutritional Appearance: obese Orientation/consciousness: patient oriented x3 Eyes: EOM: EOMs intact bilaterally Resp: Effort & Inspection: normal respiratory effort and no retractions Auscultation: clear to auscultation bilaterally Cardio: Rate: regular rate Rhythm: regular rhythm Heart sounds: no murmurs GI: GI Palp: Yes Soft to palpation, Yes Tenderness to palpation present (GI) (LLQ), No Guarding due to palpation present (GI) and No Rigid due to palpation Auscultation: normal bowel sounds : Speculum Exam - Cervix: Cervical os closed Other: no noticeable labial lesions but patient has increased sensitivity to touch of lab, there may be mild swelling and erythema. Skin: General skin exam: normal color Rashes: no rashes Neuro: General: patient oriented x3, moves all extremities and CN's II-XI intact bilaterally Course Reevaluation(s) Reevaluation #1: I Discussed with patient her symptoms seem to be related to her labial . She likely does not have UTI. She was given dose of diflucan for candidial infection as cause of her pain. she will also be placed on me
[2020-11-13] MEDS: FLUCONAZOLE 150 MG TABLET PO (07:37)
[2020-11-13 07:38] VITALS: BP 154/109; PULSE 89; RESP 16; O2SAT 98
[2020-11-13 10:53] VITALS: BP 152/100; PULSE 90; RESP 18; O2SAT 100
== END 2020-11-13 10:55 | disposition home or self-care (01) ==
PROVIDERS: Emergency Medicine; Emergency Provider General Practice; PCP Internal Medicine
DX: B37.3 Candidiasis of vulva and vagina (principal); R10.2 Pelvic and perineal pain; J45.909 Unspecified asthma, uncomplicated; E66.01 Morbid (severe) obesity due to excess calories; Z68.41 Body mass index [BMI] 40.0-44.9, adult; M19.029 Primary osteoarthritis, unspecified elbow; M17.11 Unilateral primary osteoarthritis, right knee; F17.210 Nicotine dependence, cigarettes, uncomplicated
CPT/HCPCS: 36415; 74177; 80053; 81001; 81025; 83690; 85025; 87070; 87086; 87088; 87491; 87591; 87808; 96361; 96374; 99284; A9270; J1885; J7030; Q9967

== ENCOUNTER 2021-08-22 15:03 | Outpatient (CLI) | payer BC, SELFPAY ==
--- NOTE | 2021-08-22 | ECG_ITS ---
Measurements Intervals [place] Rate: 80 P: -1 ME: 169 QRS: 31 QRSD: 95 T: 24 QT: 383 QTc: 442 Interpretive Statements SINUS RHYTHM WITH SINUS ARRHYTHMIA NORMAL ECG Electronically Signed On 08-22-2021 15:51:01 CDT by Jarad Bedolla D.O.
== END 2021-08-22 15:04 | disposition home or self-care (01) ==
PROVIDERS: PCP Internal Medicine; Visit Provider Nurse Practitioner
DX: Z00.00 Encounter for general adult medical examination without abnormal findings (principal)
CPT/HCPCS: 93005

== ENCOUNTER 2023-06-11 09:01 | Outpatient (CLI) | payer BC, SELFPAY ==
--- NOTE | ~2023-06-11 | MM_ITS ---
EXAMINATION: MM screening sonido BI w sarah HISTORY: Screening TECHNIQUE: Craniocaudal and mediolateral oblique 3-D tomosynthesis images were obtained and synthetic 2-D images were generated. CAD analysis was submitted and interpreted. COMPARISON: 09/27/2020 BREAST PARENCHYMAL COMPOSITION: Not dense: There are scattered areas of fibroglandular density. FINDINGS: There is no evidence of suspicious mass, calcification, or architectural distortion to sugg est malignancy in either breast. There has been no suspicious interval change. IMPRESSION: 1. No mammographic evidence of malignancy. 2. Recommend routine screening mammography in one year. BI-RADS Category 1: Negative Reviewed, dictated and finalized at location B.
== END 2023-06-11 09:02 | disposition home or self-care (01) ==
LOC: ANHIMG 09:06
PROVIDERS: PCP Internal Medicine; Visit Provider Nurse Practitioner Obstetrics & Gynecology
DX: Z12.31 Encounter for screening mammogram for malignant neoplasm of breast (principal)
CPT/HCPCS: 77063; 77067

== ENCOUNTER 2023-12-20 07:56 | Outpatient (CLI) | payer BC, SELFPAY ==
[2023-12-20 08:37] LABS: Anion Gap 9 mmol/L (4-12); Blood Urea Nitrogen 16 mg/dL (7-17); Calcium 9.5 mg/dL (8.4-10.2); Carbon Dioxide 27 mmol/L (22-30); Chloride 104 mmol/L (98-107); Estimated Glomerular Filt Rate > 60; Glucose 139 mg/dL (65-110); Potassium 4.7 mmol/L (3.4-5.0); Sodium 140 mmol/L (137-145)
== END 2023-12-20 07:57 | disposition home or self-care (01) ==
PROVIDERS: Anesthesiology; PCP Internal Medicine; Visit Provider Urology
DX: E11.9 Type 2 diabetes mellitus without complications (principal); Z01.818 Encounter for other preprocedural examination
CPT/HCPCS: 36415; 80048

== ENCOUNTER 2023-12-24 03:02 | Day surgery (SDC) | payer BC, SELFPAY ==
[2023-12-16 14:24] VITALS: BMI 46.4
--- NOTE | 2023-12-16 14:25 | PC.NURSE ---
Report to the Outpatient Waiting Room, entrance under the green pavilion located off [facility], at time _0615_ on date _[id number]_. Planned Procedure Time: _0815_.? Time changes happen often and if your time is changed the preop area will call you the afternoon before. - You and your visitor will be asked to self-screen and do not enter if you have any COVID symptoms. Please call surgeon if you need to reschedule. - A mask is optional within the hospital at this time. Patients may have clear liquids (water, carbonated beverages, clear teas, apple juice) until 3 hours prior to surgery with a maximum of 20 ounces. - No food from midnight until time of surgery and no smoking Take only the following medications with a SIP of water on the morning of surgery: __Acetaminophen if needed.____ DO NOT STOP ANY OF YOUR OTHER PRESCRIPTION MEDICATIONS PRIOR TO SURGERY EXCEPT THE FOLLOWING Medications to discontinue per physician __Patient has instructions from Dr Olmedo's office for holding the Meloxicam and Ozempic.____ Date to take last dose___ Please no make-up, nail albanian, hairspray, perfume, deodorant, or body powder the day of surgery.? No jewelry (including any body piercings) or valuables the day of surgery, leave them at home.? Please take a shower or bath the night before, or the morning of, surgery with an antibacterial soap.? Wear comfortable, loose fitting clothing.? - Jewelry must be removed prior to entering the operating room.? Rings and piercings that are not removed may be cut off. - The hospital will not accept responsibility for valuables.? - Please leave all valuables, including medications, at home the day of surgery. If you are going home after surgery, a licensed industrial tractor driver must drive you home.? - NO public transportation without another adult if you receive anesthesia. - We recommend that an adult stay with you for 24 hours following discharge. - We also recommend that you do not drive, make important decision, drink alcoholic beverages, or take any drugs that were not prescribed by your health care provider for at least 24 hours after your discharge time. Follow any additional instructions given to you from your surgeon. Telephone instructions given to __Ashley___and asked if any additional questions and then verbalized understanding. Patient advised to call surgeon office or pre surgery nurse liaison [phone] if any additional questions.
--- NOTE | 2023-12-18 15:54 | PM.IMHP ---
H&P: HPI History of Present Illness Date/Time: 12/18/23 15:54 Chief Complaint: FREDRICK Narrative: mixed incontinence. Desires surgical treatment for FREDRICK Review of Systems Review of Systems: All systems reviewed & are unremarkable except as noted in HPI and below PMFSH Past Medical History Medical History Abscess Acute medial meniscus tear of left knee Arthritis Arthritis of elbow, degenerative Arthritis of knee, right Asthma Chondromalacia of right patellofemoral joint Chondromalacia patellae, left knee Degenerative arthritis of left knee Exposure to COVID-19 virus Hypertension Lateral meniscus tear, current Left elbow pain Medial epicondyle apophysitis of left elbow due to overuse Medial meniscus tear Migraine Morbid obesity with BMI of 40.0-44.9, adult Obesity Obesity Pancreatitis, acute Tobacco abuse Surgical History Surgical History H/O dilation and curettage 2009 H/O lateral meniscus repair of left knee H/O reconstruction of anterior cruciate ligament tear S/P ACL surgery Left 1997 Family History Family History Father Hypertension CAD (coronary artery disease) Type 2 diabetes mellitus Mother Coronary artery stenosis Renal stones Sibling Hypertension Other Arthritis Diabetes mellitus Heart disease Malignant neoplasm Social History Social History Social History: Caffeine-Soda Smoking packs per day: 1 Smoking cigarettes per day: 20.0 Years smoked: 18 Smoking pack-years: 18.00 Smoking status: Former smoker Tobacco type: cigarettes Second hand tobacco smoke exposure: No Smoking end date: 12/15/16 Additional smoking assessment comments: QUIT 2016 Alcohol intake: current Alcohol use details: 1-2 per year Substance use: never Substance use type: does not use Lack of Transportation: No Lack of Food: Never True Current Housing: I Have Housing Concerned About Future Housing: No Difficulty Paying Gas/Electric Bills: YES Difficulty Paying for Meds: YES Currently Unemployed: No Education: High School Diploma/GED Difficulty w/ Childcare or Family Care: No Living arrangements: with family Gender identity (if verbalized by the patient): Female Spiritual care concerns: No Meds Home Medications and Allergies Home Medications Medication Instructions Recorded Confirmed Type acetaminophen 500 mg tablet 500 mg PO Q6H PRN Pain 06/06/21 12/16/23 History (Tylenol Extra Strength) rizatriptan 5 mg tablet See Rx Instructions PO .COMPLEX #9 05/14/23 12/16/23 Rx tabs atorvastatin 10 mg tablet 10 mg PO QHS #90 tabs 09/17/23 12/16/23 Rx meloxicam 15 mg tablet 15 mg PO DAILY #90 tabs 09/30/23 12/16/23 Rx semaglutide 0.25 mg or 0.5 mg (2 0.5 mg (0.736 mL) subcut WEEKLY #3 11/30/23 12/16/23 Rx mg/3 mL) subcutaneous pen injector mL (Ozempic) lisinopril 10 mg tablet See Rx Instructions .Route 12/15/23 12/16/23 Rx .COMPLEX #90 tabs albuterol sulfate 90 mcg/actuation 1 inh inhalation Q4H PRN Dyspnea 12/16/23 12/16/23 History aerosol inhaler Allergies Allergy/AdvReac Type Severity Reaction Status Date / Time No Known Allergies Allergy Verified 12/16/23 14:16 Exam Narrative: urethral hypermobility Assessment and Plan Assessment and plan (1) FREDRICK (stress urinary incontinence, female): Code(s): N39.3 - Stress incontinence (female) (male) Status: Acute Assessment and Plan: Urethral sling
--- NOTE | 2023-12-24 04:44 | WPDHPUPDATE1 ---
History and Physical Update Update Date/Time: 12/24/23 04:44 History and Physical has been reviewed, including an updated exam of the patient. There are NO changes in the patient's condition. Risks, benefits, and alternatives have been discussed and questions answered. Patient agrees to proceed with procedure.
[2023-12-24 07:00] VITALS: BP 137/93; PULSE 92; RESP 14; TEMP 36.8; O2SAT 98
[2023-12-24] MEDS: LACTATED RINGERS 1,000 ML 30 ML IV CONT (07:00)
[2023-12-24 07:06] LABS: Glucose Point of Care 141 mg/dl (65-105)
--- NOTE | 2023-12-24 07:40 | WPDANESEPPF ---
Anes - Initial Pre Proc Eval Procedure: Operation Date: 12/24/23 08:15 Proposed Procedures p Urethral Sling - Lester Olmedo MD Date/Time: 12/24/23 07:40 Surgeon: Lester Olmedo MD Pre Op Diagnosis: stress incont Patient Data Age: 43 Gender: F Height: 1.63 m Weight: 122.7 kg Last Vital Signs Temp 36.8 C 12/24/23 07:00 Pulse 92 12/24/23 07:00 Resp 14 12/24/23 07:00 BP 137/93 H 12/24/23 07:00 Pulse Ox 98 12/24/23 07:00 O2 Del Method Room Air 12/24/23 07:00 Allergies Allergy/AdvReac Type Severity Reaction Status Date / Time No Known Allergies Allergy Verified 12/16/23 14:16 Home Medications Medication Instructions Recorded Confirmed Type acetaminophen 500 mg tablet 500 mg PO Q6H PRN Pain 06/06/21 12/16/23 History (Tylenol Extra Strength) rizatriptan 5 mg tablet See Rx Instructions PO .COMPLEX #9 05/14/23 12/16/23 Rx tabs atorvastatin 10 mg tablet 10 mg PO QHS #90 tabs 09/17/23 12/16/23 Rx meloxicam 15 mg tablet 15 mg PO DAILY #90 tabs 09/30/23 12/16/23 Rx semaglutide 0.25 mg or 0.5 mg (2 0.5 mg (0.736 mL) subcut WEEKLY #3 11/30/23 12/16/23 Rx mg/3 mL) subcutaneous pen injector mL (Ozempic) lisinopril 10 mg tablet See Rx Instructions .Route 12/15/23 12/16/23 Rx .COMPLEX #90 tabs albuterol sulfate 90 mcg/actuation 1 inh inhalation Q4H PRN Dyspnea 12/16/23 12/16/23 History aerosol inhaler Laboratory Tests 12/24/23 07:01 POC Capillary Glucose 141 H mg/dl (65-105) Patient hx anesthesia problems: none Family hx anesthesia problems: none Results Review: All pre-operative results and documents have been reviewed as part of the pre-operative evaluation. [facility], [facility] Past Medical History Medical History (Updated 12/24/23 @ 07:41 by Russell Nazario MD) Abscess Acute medial meniscus tear of left knee Arthritis Arthritis of elbow, degenerative Arthritis of knee, right Asthma Chondromalacia of right patellofemoral joint Chondromalacia patellae, left knee Degenerative arthritis of left knee Exposure to COVID-19 virus Hypertension Lateral meniscus tear, current Left elbow pain Medial epicondyle apophysitis of left elbow due to overuse Medial meniscus tear Migraine Morbid obesity with BMI of 40.0-44.9, adult Pancreatitis, acute Tobacco abuse Surgical History Surgical History H/O dilation and curettage 2009 H/O lateral meniscus repair of left knee H/O reconstruction of anterior cruciate ligament tear S/P ACL surgery Left 1997 Family History Family History Father Hypertension CAD (coronary artery disease) Type 2 diabetes mellitus Mother Coronary artery stenosis Renal stones Sibling Hypertension Other Arthritis Diabetes mellitus Heart disease Malignant neoplasm Social History Social History Social History: Caffeine-Soda Smoking packs per day: 1 Smoking cigarettes per day: 20.0 Years smoked: 18 Smoking pack-years: 18.00 Smoking status: Former smoker Tobacco type: cigarettes Second hand tobacco smoke exposure: No Smoking end date: 12/15/16 Additional smoking assessment comments: QUIT 2016 Alcohol intake: current Alcohol use details: 1-2 per year Substance use: never Substance use type: does not use Lack of Transportation: No Lack of Food: Never True Current Housing: I Have Housing Concerned About Future Housing: No Difficulty Paying Gas/Electric Bills: YES Difficulty Paying for Meds: YES Currently Unemployed: No Education: High School Diploma/GED Difficulty w/ Childcare or Family Care: No Living arrangements: with family Gender identity (if verbalized by the patient): Female Spiritual care concerns: No Anes - Eval Final PreProcedure Day of Procedure 12/24/23 07:40 Patient weight: morbidly obese Heart: regular rate and rhythm Lungs: clear to auscultation Airway: Mallampati scale class II Neurological: alert and oriented Last oral intake: >/= 8 hours ASA classification: III Emergent: no Anesthetic plan: proceed Anesthesia type and monitoring: general GIVS and standard monitoring Results Review: All pre-operative results and documents have been reviewed as part of the pre-operative evaluation. Informed Consent: The patient's anesthetic plan and its attendant risks and benefits were discussed with the patient/family/POA. Questions were solicited and answers provided to the satisfaction of the patient/family/POA.
[2023-12-24] MEDS: ceFAZolin 3 GM/D5W 100 ML 100 ML IVPB (08:04)
[2023-12-24 08:24] LABS: BEDSIDEPREGUCG Negative (Negative)
[2023-12-24] MEDS: BUPIVACAINE/EPINEPHRINE 0.5% 50 ML VIAL 20 ML INFILTRATE (08:24)
--- NOTE | 2023-12-24 08:43 | W.PM.PROC2 ---
Procedure Note - Detailed Date of Procedure 12/24/23 Pre-op Diagnosis stress incontinence Post-op Diagnosis Same Procedure Performed mid urethral sling cystoscopy Surgeon Lester Olmedo MD Anesthesia General Indications This is a female with confirm stress urinary incontinence. She desires surgical correction. She understands the risks of bleeding, infection, injury to the urinary tract, vaginal mesh extrusion, urinary tract mesh erosion, obstructive voiding requiring a secondary procedure, hip and leg pain, dyspareunia, inability to improve overactive bladder symptoms. She agrees to proceed. Description of Procedure She was correctly identified. Informed consent obtained. She was brought the operating room. She was given appropriate anesthesia. She was given appropriate perioperative antibiotics. A time-out performed. I marked out the site of the inner thigh incisions. I anesthetized the skin and made those incisions. I anesthetized the anterior vaginal wall over the mid urethra. I made a 1 cm incision. I dissected out laterally taking great care not to injure the refilled vaginal wall. I passed the helical trocars. First on the left. Then on the right. I did this from the thigh incision towards the vaginal incision. Trocar passage was somewhat more difficult due to her body habitus. The sling was connected to the trocars and brought out through the thigh incision. I tensioned the sling appropriately. I cut and the plastic sheaths. I then closed the incision with 2 0 Vicryl. On cystoscopy there is no tumors or surgical artifact. There was no surgical artifact in the urethra. I cut the excess sling material. Close incisions with glue. She was awakened and transferred to the PACU in stable condition. Implants Urethral sling Drains No Packing No Pathology None sent Complications No immediate complications Condition Stable Disposition PACU
[2023-12-24 08:46] VITALS: BP 129/84; PULSE 89; RESP 16; O2SAT 99
[2023-12-24 08:51] LABS: Glucose Point of Care 122 mg/dl (65-105)
[2023-12-24 09:15] VITALS: BP 145/99; PULSE 86; RESP 16; O2SAT 98
[2023-12-24 09:35] VITALS: BP 145/100; PULSE 84; RESP 16
== END 2023-12-24 09:45 | disposition home or self-care (01) ==
PROVIDERS: PCP Internal Medicine; Visit Provider Urology
PROC: (CPT 57288; principal; 2023-12-24 08:15)
DX: N39.3 Stress incontinence (female) (male) (principal); Z87.891 Personal history of nicotine dependence; Z79.85 Long-term (current) use of injectable non-insulin antidiabetic drugs; E66.01 Morbid (severe) obesity due to excess calories; Z68.42 Body mass index [BMI] 45.0-49.9, adult
CPT/HCPCS: 57288; 36415; 80048; 82948; C1771; J0690; J2250; J2405; J2704; J3010; J7030; J7120